=== PATIENT | female | born 1990 | race African-American/Black ===

== ENCOUNTER 2024-12-11 11:04 | Emergency (ER) | payer OTHER | END 2024-12-11 12:20 | disposition home or self-care (01) | LOC: CSHERS 11:04 | DX: S49.91XD Unspecified injury of right shoulder and upper arm, subsequent encounter (principal); M62.838 Other muscle spasm; F17.290 Nicotine dependence, other tobacco product, uncomplicated; X50.0XXD Overexertion from strenuous movement or load, subsequent encounter | CPT/HCPCS: 99283 ==